=== PATIENT | female | born 1945 | race Caucasian/White ===

== ENCOUNTER 2018-10-30 15:52 | Emergency (ER) | payer MEDICARE, BC ==
--- NOTE | 2018-10-30 17:37 | UC ---
Respiratory Complaint HPI - HPI Summary HPI Summary: 73-year-old woman comes in to clinic today with a chief complaint of runny nose sore throat and cough. Been going on for about 3 days. Patient has diabetes and COPD and she's worried that if this gets worse she can get very sick. No recent fevers. No worsening shortness of breath no chest pain. - History of Current Complaint Stated Complaint: COUGH,CONGESTION,RT EAR COMPLAINT Time Seen by Provider: 10/30/18 17:11 - Allergies/Home Medications Home Medications: Home Medications Aspirin [Aspir-Low] 81 mg PO DAILY 10/30/18 [History Confirmed 10/30/18] Insulin Lispro Protamin/Lispro [Humalog Mix 75/25] 1 stephania SC SEE INSTRUCTIONS 06/10 [History Confirmed 10/30/18] LORazepam [Ativan 1 MG TAB] 1.5 mg PO QPM 10/30/18 [History Confirmed 10/30/18] Lisinopril TAB* [Prinivil TAB*] 40 mg PO BID 10/30/18 [History Confirmed ] Metoprolol Tartrate TAB* [Lopressor TAB*] 75 mg PO BID 10/30/18 [History Confirmed 10/30/18] Nortriptyline HCl 50 mg PO QPM 10/30/18 [History Confirmed 10/30/18] Simvastatin [Zocor] 40 mg PO QPM 10/30/18 [History Confirmed 10/30/18] amLODIPine TAB* [Norvasc 5 mg TAB*] 10 mg PO DAILY 10/30/18 [History Confirmed 10/30/18] traMADol TAB* [Ultram*] 50 mg PO QID PRN 10/30/18 [History Confirmed 10/30/18] PMH/Surg Hx/FS Hx/Imm Hx Previously Healthy: Yes Endocrine History: Diabetes Cardiovascular History: Hypertension Respiratory History: COPD, Asthma - Family History Known Family History: Positive: Non-Contributory Review of Systems All Other Systems Reviewed And Are Negative: Yes Constitutional: Positive: Negative Skin: Positive: Negative Eyes: Positive: Negative ENT: Positive: Sore Throat, Nasal Discharge, Sinus Congestion Respiratory: Positive: Cough Cardiovascular: Positive: Negative Gastrointestinal: Positive: Negative Motor: Positive: Negative Neurovascular: Positive: Negative Musculoskeletal: Positive: Negative Neurological: Positive: Negative Psychological: Positive: Negative Is Patient Immunocompromised?: No Physical Exam Triage Information Reviewed: Yes Appearance: Well-Appearing, No Pain Distress, Well-Nourished Vital Signs Reviewed: Yes Eye Exam: Normal Eyes: Positive: Conjunctiva Clear ENT: Positive: Pharyngeal erythema, Nasal congestion, Nasal drainage, TMs normal Neck exam: Normal Neck: Positive: Supple, Nontender Respiratory: Positive: Lungs clear, Normal breath sounds, No respiratory distress Cardiovascular: Positive: RRR Musculoskeletal Exam: Normal Musculoskeletal: Positive: Strength Intact, ROM Intact Neurological Exam: Normal Neurological: Positive: Alert, Muscle Tone Normal Psychological Exam: Normal Psychological: Positive: Normal Response To Family, Age Appropriate Behavior Skin Exam: Normal Respiratory Course/Dx - Course Course Of Treatment: DISCUSSED VIRAL VERSES BACTERIAL INFECTION AND THE ROLE OF ANTIBIOTICS. THE PATIENT WISHES TO BE ON ANTIBIOTIC AT THIS TIME. - Differential Dx/Diagnosis Provider Diagnosis: Upper respiratory infection Discharge - Sign-Out/Discharge Documenting (check all that apply): Patient Departure All imaging exams completed and their final reports reviewed: No Studies - Discharge Plan Condition: Stable Disposition: HOME Prescriptions: Azithromycin TAB* [Zithromax TAB (Z-BRAYAN) 250 mg #6 tabs] 2 tab PO .TODAY, THEN 1 DAILY #1 brayan Patient Education Materials: Upper Respiratory Infection (ED) Referrals: [facility] [Outside] Additional Instructions: FOLLOW UP WITH YOUR DOCTOR IF NOT COMPLETELY IMPROVED. GET RECHECKED FOR ANY WORSENING OF YOUR CONDITION OR QUESTIONS OR CONCERNS. - Billing Disposition and Condition Condition: STABLE Disposition: Home
[2018-10-30 17:41] VITALS: BP 158/67
== END 2018-10-30 17:47 | disposition home or self-care (01) ==
LOC: UCCORT 15:52
DX: J06.9 Acute upper respiratory infection, unspecified (principal); E11.9 Type 2 diabetes mellitus without complications; I10 Essential (primary) hypertension; Z79.4 Long term (current) use of insulin
CPT/HCPCS: 99202; G0463